=== PATIENT | female | born 1990 ===

== ENCOUNTER 2019-01-09 07:10 | Outpatient (CLI) | payer BC, MEDICAID ==
[2019-01-09] MEDS ORDERED: SODIUM CHLORIDE 0.9% 1000 ML 1,000 ML IV ONE ×2 (07:43→10:55)
[2019-01-09] MEDS ORDERED: MECLIZINE 25 MG TAB PO ONE (07:43)
[2019-01-09] MEDS ORDERED: ONDANSETRON 4 MG/2 ML INJ IV ONE (07:43)
--- NOTE | 2019-01-09 07:49 | Emergency Department Report ---
HPI - General Chief Complaint: Dizziness Time Seen by Provider: 01/09/19 07:30 - HPI HPI: Room 3 The patient is a 28-year-old female presenting with a chief complaint of dizziness. The patient states she awakened this morning at 05:30 feeling dizzy. The patient states she attempted to shower to see if the fibula past but did not. The patient states while walking in the hallway she continued to feel dizzy. She states it felt as though the hallway with moving and "slid to the side" causing her to fall striking the right side of her head. Patient denies loss of consciousness. The patient states last night at approximately 21:00 she has some lower abdominal pressure/contractions. The patient states this morning at 06:00 she again had a brief episode of contraction and then 15 minutes ago prior to my evaluation the patient had another episode of "contractions". Patient denies vaginal bleeding Location: [See above] Duration: [See above] Quality: [See above] Severity: [See above] Timing: [See above] Context: [See above] Modifying factors: [See above] Associated signs and symptoms: [see above] ED Past Medical Hx - Past Medical History Previous Medical History?: Yes Additional medical history: heart murmur - Surgical History Past Surgical History?: No - Family History Family history: no significant - Social History Smoking Status: Never Smoker Substance Use Type: None (denies illicit drug use) - Medications Home Medications: Home Medications Medication Instructions Recorded Confirmed Last Taken Type Ferrous Sulfate [Feosol 325 MG tab] 325 mg PO BID #60 tablet 08/15/14 Unknown Rx HYDROcodone/APAP 5-325 [[place] 1 each PO Q6HR PRN #30 tablet 08/15/14 Unknown Rx 5/325] Ibuprofen [Motrin 600 MG tab] 600 mg PO Q8H PRN #30 tablet 08/15/14 Unknown Rx Multivit with Calcium,Iron,Min 1 each PO DAILY #30 tablet 08/15/14 Unknown Rx [Multiple Vitamins For Women] Meclizine [Antivert] 25 mg PO TID PRN #20 tablet 01/09/19 Unknown Rx ED Review of Systems ROS: Stated complaint: HEAD INJURY 38 WEEKS Other details as noted in HPI Constitutional: no symptoms reported Eyes: denies: eye pain ENT: denies: throat pain Respiratory: no symptoms reported Cardiovascular: denies: chest pain Endocrine: no symptoms reported Gastrointestinal: denies: abdominal pain Genitourinary: other (contractions). denies: abnormal menses Musculoskeletal: denies: back pain Neurological: vertigo Physical Exam - Physical Exam Physical Exam: GENERAL: The patient is well-developed well-nourished female lying on stretcher not appearing to be in acute distress. [] HEENT: Normocephalic. Atraumatic. Extraocular motions are intact. Patient has moist mucous membranes. No nystagmus NECK: Supple. Trachea midline CHEST/LUNGS: Clear to auscultation. There is no respiratory distress noted. HEART/CARDIOVASCULAR: Regular. There is no tachycardia. There is no gallop rub or murmur. ABDOMEN: Abdomen is gravid, nontender. Patient has normal bowel sounds. There is no abdominal distention. SKIN: There is no rash. There is no edema. There is no diaphoresis. NEURO: The patient is awake, alert, and oriented. The patient is cooperative. The patient has no focal neurologic deficits. The patient has normal speech. Cranial nerves II through XII grossly intact, no drift. No dysmetria noted with [id number] bilaterally MUSCULOSKELETAL: There is no evidence of acute injury. ED Course - Consultations Consultation #1: 01/09/19 09:31 ELEVATOR ATTENDANT paged 01/09/19 10:[address] Del Toro- transfer to labor and delivery once patient is orthostatically stable ED Medical Decision Making - Lab Data Result diagrams: 01/09/19 07:43 01/09/19 07:43 - Radiology Data Radiology results: report reviewed (CT head), image reviewed (CT head) [address] [address] Cat Scan Report Signed Patient: AFRICA LAL MR#: [id number] 4 : 1990 Acct:[id number] Age/Sex: 28 / F ADM Date: 01/09/19 Loc: ED Attending Dr: Order ing Physician: JOSSELYN RICHARD MD Date of Service: 01/09/19 Procedure(s): CT head/brain wo con Accession Number(s): [id number] cc: JOSSELYN RICHARD MD CT HEAD WITHOUT CONTRAST INDICATION / CLINICAL INFORMATION: dizziness, headache. Patient is 9 months . TECHNIQUE: Axial imaging performed from the skull apex through the skull base without the use of contrast. Sagittal and coronal reformatted images. All CT scans at this location are performed using CT dose reduction for ALARA by means of automated exposure control. COMPARISON: None available. FINDINGS: CEREBRAL PARENCHYMA: No significant abnormality. No acute territorial infarct. HEMORRHAGE: None. EXTRA-AXIAL SPACES: Normal in size and morphology for the patient's age. VENTRICULAR SYSTEM: Normal in size and morphology for the patient's age. MIDLINE SHIFT OR HERNIATION: None. CEREBELLUM / BRAINSTEM: No significant abnormality. CALVARIUM: No significant abnormality. ORBITS: Normal as visualized. PARANASAL SINUSES / MASTOID AIR CELLS: Normal as visualized. SOFT TISSUES of HEAD: No significant abnormality. ADDITIONAL FINDINGS: None. IMPRESSION: Normal CT brain. Signer Name: Gary Saravia Jr, MD Signed: 01/09/2019 9:10 AM Workstation Name: [id number] Transcribed By: TTR Dictated By: GARY SARAVIA JR, MD Electronically Authenticated By: GARY SARAVIA JR, MD Signed Date/Time: 01/09/19909 DD/ 8 TD/TT: - Differential Diagnosis intracranial mass, vertigo, ICH, anxiety Critical care attestation.: If time is entered above; I have spent that time in minutes in the direct care of this critically ill patient, excluding procedure time. ED Disposition Clinical Impression: Dizziness Disposition: DC/TX-70 ANOTHER TYPE HLTHCARE Is pt being admited?: No Does the pt Need Aspirin: No Condition: Stable Prescriptions: Meclizine [Antivert] 25 mg PO TID PRN #20 tablet PRN Reason: Vertigo Referrals: PRIMARY CARE, [Primary Care Provider] - 3-5 Days Time of Disposition: 12:22 (to L&D)
[2019-01-09 08:00] LABS: Basophils % (Auto) 0.5 % (0.0-1.8); Eosinophils # (Auto) 0.1 K/mm3 (0.0-0.4); Hemoglobin 11.6 gm/dl (10.1-14.3); Lymphocytes # (Auto) 1.4 K/mm3 (1.2-5.4); Lymphocytes % (Auto) 18.4 % (13.4-35.0); Mean Corpuscular HGB Conc 34 % (30-34); Mean Corpuscular Volume 89 fl (79-97); Monocytes # (Auto) 0.5 K/mm3 (0.0-0.8); Platelet Count 233 K/mm3 (140-440); Red Blood Count 3.82 M/mm3 (3.65-5.03); Red Cell Distribution Width 13.4 % (13.2-15.2)
[2019-01-09 08:10] LABS: INR 1.03 (0.87-1.13)
[2019-01-09 08:20] LABS: Alanine Aminotransferase 11 units/L (7-56); Albumin 3.3 g/dL (3.9-5); BUN/Creatinine Ratio 23; Blood Urea Nitrogen 9 mg/dL (7-17); Calcium 8.6 mg/dL (8.4-10.2); Hemolysis Index 5
[2019-01-09 08:27] LABS: Free T4 (Free Thyroxine) 0.93 ng/dL (0.76-1.46)
--- NOTE | 2019-01-09 09:14 | Cat Scan Report ---
CT HEAD WITHOUT CONTRAST INDICATION / CLINICAL INFORMATION: dizziness, headache. Patient is 9 months . TECHNIQUE: Axial imaging performed from the skull apex through the skull base without the use of cont rast. Sagittal and coronal reformatted images. All CT scans at this location are performed using CT dose reduction for ALARA by means of automated exposure control. COMPARISON: None available. FINDINGS: CEREBRAL PARENCHYMA: No significant abnormality. No acute territorial infarct. HEMORRHAGE: None. EXTRA-AXIAL SPACES: Normal in size and morphology for the patient's age. VENTRICULAR SYSTEM: Normal in size and morphology for the patient's age. MIDLINE SHIFT OR HERNIATION: None. CEREBELLUM / BRAINSTEM: No significant abnormality. CALVARIUM: No significant abnormality. ORBITS: Normal as visualized. PARANASAL SINUSES / MASTOID AIR CELLS: Normal as visualized. SOFT TISSUES of HEAD: No significant abnormality. ADDITIONAL FINDINGS: None. IMPRESSION: Normal CT brain. Signer Name: Gary Saravia Jr, MD Signed: 01/09/2019 9:10 AM Workstation Name: [id number]
[2019-01-09] MEDS ORDERED: SODIUM CHLORIDE 0.9% 1000 ML 1,000 ML ONE (10:58)
[2019-01-09 13:49] VITALS: BP 98/58
== END 2019-01-09 13:56 | disposition home or self-care (01) ==
LOC: ED 07:10 → EDSTATUS 13:15 → TRG 13:18
PROVIDERS: ATTEND Obstetrics & Gynecology
DX: O9A.213 Injury, poisoning and certain other consequences of external causes complicating pregnancy, third trimester (principal); S09.90XA Unspecified injury of head, initial encounter; O26.893 Other specified pregnancy related conditions, third trimester; R42 Dizziness and giddiness; O62.9 Abnormality of forces of labor, unspecified; Z3A.38 38 weeks gestation of pregnancy; W01.0XXA Fall on same level from slipping, tripping and stumbling without subsequent striking against object, initial encounter; Y92.009 Unspecified place in unspecified non-institutional (private) residence as the place of occurrence of the external cause; Y93.89 Activity, other specified; Y99.8 Other external cause status
CPT/HCPCS: 36415; 59025; 70450; 80053; 84439; 84443; 85025; 85610; 96374; J2405; J7030

== ENCOUNTER 2019-01-26 21:27 | Inpatient (IN) | payer BC, MEDICAID ==
[2019-01-26] MEDS ORDERED: ePHEDrine SULFATE 50 MG/1 ML INJ IV PRN (21:28)
[2019-01-26] MEDS ORDERED: TERBUTALINE 1 MG/1 ML INJ IVP PRN (21:28)
[2019-01-26] MEDS ORDERED: NALOXONE 0.4 MG/1 ML INJ IV PRN (21:28)
[2019-01-26] MEDS ORDERED: TERBUTALINE 1 MG/1 ML INJ SUB-Q PRN (21:28)
[2019-01-26] MEDS ORDERED: LIDOCAINE (2%) 20 MG/1 ML VIAL 20 ML MDV INFILTRATI ONE (21:28)
[2019-01-26] MEDS ORDERED: fentaNYL 100 MCG/2 ML INJ IV PRN (21:28)
[2019-01-26] MEDS ORDERED: MINERAL OIL 30 ML ORAL LIQD PO PRN (21:28)
[2019-01-26] MEDS ORDERED: PROMETHAZINE 25 MG TAB PO PRN ×2 (21:28→21:48)
[2019-01-26] MEDS ORDERED: ONDANSETRON 4 MG/2 ML INJ IV PRN ×2 (21:28→21:48)
[2019-01-26] MEDS ORDERED: BUTORPHANOL 2 MG/1 ML INJ IV PRN (21:28)
[2019-01-26] MEDS ORDERED: OXYTOCIN 20 UNIT/1000ML DRIP 20,000 MILLIUNITS/1,000 ML BAG IV ONE (21:37)
[2019-01-26 21:43] LABS: Hematocrit 35.8 % (30.3-42.9); Hemoglobin 12.1 gm/dl (10.1-14.3); Mean Corpuscular HGB Conc 34 % (30-34); Mean Corpuscular Volume 88 fl (79-97); Platelet Count 259 K/mm3 (140-440); Red Blood Count 4.06 M/mm3 (3.65-5.03); Red Cell Distribution Width 13.4 % (13.2-15.2)
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
--- NOTE | 2019-01-26 21:46 | Procedure Note ---
OB Delivery Note - Delivery Date of Delivery: 01/26/19 Surgeon: MEL BARILLAS Estimated blood loss: 100cc - Vaginal Delivery presentation: vertex Delivery position: OA Intrapartum events: precipitous labor- <3hr Delivery induction: none Delivery augmentation: rupture of membranes Delivery monitor: external FHT, external uterine Route of delivery: Delivery placenta: spontaneous Delivery cord: 3 umbilical vessels Episiotomy: none Delivery laceration: none Anesthesia: none Delivery comments: delivered OA and placed on Mom's chest for [id number] bonding and delayed cord clamping, cut by Grandma - Infant A at 1 minute: 8 at 5 minutes: 9 Infant Gender: Female (3332gms)
[2019-01-26] MEDS ORDERED: diphenhydrAMINE 25 MG CAP PO PRN (21:48)
[2019-01-26] MEDS ORDERED: WITCH HAZEL/ GLYCERIN PAD TP PRN (21:48)
[2019-01-26] MEDS ORDERED: MAGNESIUM HYDROXIDE (MOM) ORAL LIQD UDC PO PRN (21:48)
[2019-01-26] MEDS ORDERED: PROMETHAZINE 25 MG RECT SUPP PR PRN (21:48)
[2019-01-26] MEDS ORDERED: ACETAMINOPHEN 325 MG TAB PO PRN (21:48)
[2019-01-26] MEDS ORDERED: LANOLIN/ZINC/DIMETHICONE (LANSINOH) 7 GM TP PRN (21:48)
[2019-01-26] MEDS ORDERED: OXYTOCIN DRIP 30 UNITS/500 ML BAG IV SCH ×2 (22:00)
[2019-01-26] MEDS ORDERED: LACTATED RINGERS 1,000 ML IV SCH (22:00)
[2019-01-26] MEDS ORDERED: OXYTOCIN 20 UNIT/1000ML DRIP 20 UNITS/1,000 ML BAG IV SCH ×2 (22:00)
[2019-01-26] MEDS ORDERED: METHYLERGONOVINE MALEATE 0.2 MG/ML VIAL IM ONE ×2 (22:42→22:43)
[2019-01-26] MEDS: IBUPROFEN 600 MG TAB PO SCH (22:50)
[2019-01-26] MEDS ORDERED: AMMONIA INHALANT IH ONE (23:34)
[2019-01-26] MEDS: HYDROcodone/ACETAMINOPHEN 5-325 MG TAB PO PRN (23:45)
[2019-01-27] MEDS: IBUPROFEN 600 MG TAB PO SCH ×3 (05:29→23:07)
[2019-01-27] MEDS ORDERED: TETANUS,DIPH,PERTUSS(ACELL) VACCINE 0.5 ML SYRINGE IM ONE (06:00)
[2019-01-27] MEDS ORDERED: MEASLES, MUMPS & RUBELLA 12,500 UNIT/0.5 ML VACCINE SUB-Q ONE (06:00)
[2019-01-27 10:11] LABS: Hematocrit 32.3 % (30.3-42.9)
[2019-01-27] MEDS: PRENATAL VIT27-FE FUMARATE-FOLIC ACID VIT TAB PO SCH (12:06)
[2019-01-27] MEDS: FERROUS SULFATE 325 MG TAB PO SCH ×2 (12:06→23:08)
--- NOTE | 2019-01-27 13:12 | Progress Note ---
Assessment and Plan - Patient Problems (1) 40 weeks gestation of Onset Date: 01/26/19 Current Visit: Yes Status: Resolved (2) Active labor at term Onset Date: 01/26/19 Current Visit: No Status: Resolved (3) (normal spontaneous vaginal delivery) Onset Date: 01/27/19 Current Visit: Yes Status: Resolved Plan to address problem: A: S/P - PPD #1 Doing well Asymptomatic anemia - stable P: May go home tomorrow. Subjective - Subjective Date of service: 01/27/19 Principal diagnosis: s/p - PPD #1 Interval history: Pt is feeling well without complaints. Bleeding improved. Patient reports: appetite normal, voiding normally, pain well controlled, flatus, ambulating normally, no dizzy ambulation, no nauseated : doing well, nursing well Objective - Vital Signs Latest vital signs: Vital Signs Temp Pulse Resp BP BP BP Pulse Ox 01/27/19 12:12 99/55 01/27/19 12:11 98.1 F 80 20 91/62 98 01/27/19 07:19 98.2 F 66 16 93/55 95 01/27/19 02:00 98.1 F 75 20 121/74 97 01/27/19 00:59 72 114/58 01/27/19 00:29 66 122/73 01/27/19 00:15 64 100/59 01/26/19 23:59 70 125/78 01/26/19 23:45 70 117/68 01/26/19 22:59 80 108/61 01/26/19 22:44 82 104/59 01/26/19 22:39 76 112/60 01/26/19 22:30 98.1 F 75 18 125/78 01/26/19 22:29 78 113/61 01/26/19 22:14 76 112/58 01/26/19 21:59 82 106/56 01/26/19 21:46 86 110/59 Intake and Output 01/26/19 01/27/19 01/27/19 22:59 06:59 14:59 Intake Total 240 Output Total 900 500 Balance -660 -500 Intake: Oral 240 Output: Urine 900 500 Void 900 500 Other: Total, Intake Amount 120 Total, Output Amount 500 500 Weight 78.925 kg Estimated Blood Loss 100 - Exam Breasts: Present: deferred Abdomen: Present: normal appearance, soft Uterus: Present: normal, firm, fundal height below umbilicus Extremities: Present: normal - Labs Labs: Abnormal lab results 01/26/19 Range/Units 21:15 WBC 12.1 H (4.5-11.0) K/mm3 Laboratory Tests 01/26/19 01/26/19 01/27/19 21:15 21:15 09:58 WBC 12.1 H RBC 4.06 Hgb 12.1 11.0 Hct 35.8 32.3 MCV 88 MCH 30 MCHC 34 RDW 13.4 Plt Count 259 Blood Type O POSITIVE Antibody Screen Negative
[2019-01-27] MEDS: HYDROcodone/ACETAMINOPHEN 5-325 MG TAB PO PRN (17:46)
[2019-01-27] MEDS: DOCUSATE SODIUM 100 MG CAP PO SCH (23:08)
[2019-01-28] MEDS: IBUPROFEN 600 MG TAB PO SCH (05:17)
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
[2019-01-28] MEDS: PRENATAL VIT27-FE FUMARATE-FOLIC ACID VIT TAB PO SCH (12:31)
[2019-01-28] MEDS: HYDROcodone/ACETAMINOPHEN 5-325 MG TAB PO PRN (12:31)
[2019-01-28] MEDS: DOCUSATE SODIUM 100 MG CAP PO SCH (12:31)
[2019-01-28] MEDS: FERROUS SULFATE 325 MG TAB PO SCH (12:31)
[2019-01-28 16:55] VITALS: BP 112/76
== END 2019-01-28 18:35 | disposition home or self-care (01) | DRG 807 ==
LOC: LD 21:27 → OB 01-27 01:25
PROVIDERS: ADMIT Obstetrics & Gynecology; ATTEND Obstetrics & Gynecology
PROC: 10E0XZZ Delivery of Products of Conception, External Approach (ICD-10-PCS; principal; 2019-01-26)
PROC: 3E0234Z Introduction of Serum, Toxoid and Vaccine into Muscle, Percutaneous Approach (ICD-10-PCS; 2019-01-27)
PROC: 3E0134Z Introduction of Serum, Toxoid and Vaccine into Subcutaneous Tissue, Percutaneous Approach (ICD-10-PCS; 2019-01-27)
DX: O62.3 Precipitate labor (principal); Z37.0 Single live birth; O99.02 Anemia complicating childbirth; Z3A.40 40 weeks gestation of pregnancy; Z23 Encounter for immunization; Z79.899 Other long term (current) drug therapy
CPT/HCPCS: 36415; 85014; 85018; 85027; 86850; 86900; 86901; 90471; 90715; G0378; A6250; J2210; J2590; J7120

== ENCOUNTER 2020-01-12 02:02 | Emergency (ER) | payer BC, MEDICAID | END 2020-01-12 04:31 | disposition left against medical advice (07) | LOC: ED 02:02 | DX: M54.9 Dorsalgia, unspecified (principal); Z53.21 Procedure and treatment not carried out due to patient leaving prior to being seen by health care provider ==